=== PATIENT | male | born 1950 | race Caucasian/White ===

== ENCOUNTER → 2016-10-21 | Outpatient (CLI) | payer MEDICARE ==
--- NOTE | 2016-10-21 10:49 | REP ---
MAXILLOFACIAL CT WITHOUT CONTRAST: HISTORY: Chronic sinusitis. Mucosal thickening is present in the left maxillary sinus. There is almost complete opacification of the left maxillary sinus. Minimal mucosal thickening is present in the ethmoid, right maxillary and left sphenoid sinuses. The remaining sinuses are clear. Mucosal thickening involves the osteomeatal units. The middle and inferior nasal turbinates are partially paradoxical. There is very minimal deviation of the nasal septum to the right. A spur is present arising from the right side of the nasal septum. The cribriform plate, medial lai of the orbits and optic canals are intact. There is aeration of the left anterior clinoid process. The carotid canals form a segment of the posterolateral lai of the sphenoid sinus. The left sphenoid sinus septum inserts into the left internal carotid canal wall. Calcification is present in the left tonsil. There is slight asymmetry of the tonsils with the left being slightly larger than the right. IMPRESSION: Sinus mucosal thickening as described above. Signed by Mamadou Griffith MD 10/21/2016 11:09 A
== END ==
LOC: M RAD 09:46
PROVIDERS: ATTEND Specialist
DX: J32.4 Chronic pansinusitis (principal)

== ENCOUNTER 2017-01-19 09:58 | Day surgery (SDC) | payer MEDICARE ==
[~2017-01-19] VITALS: Ht 172.7 cm; Wt 97.5 kg
[~2017-01-19 09:58] MED LIST: ASPI81TA85 PO; ATOR1TAB19 PO; CIAL20TA PO; EPINEPHrine 1MG/ML INJ 30ML MD-VIAL As Ordered ONE; IBUP80TA PO; LIDOCAINE W/EPINEPHRINE 1% 20ML VIAL As Ordered ONE; LISI10TA4 PO; METF500T13 PO; OXYMETAZOLINE NASAL SPRAY (AFRIN) As Ordered ONE
[2017-01-19] MEDS ORDERED: LIDOCAINE 1% SDV 5 ML VIAL SQ ONE (10:00)
[2017-01-19] MEDS ORDERED: LR 1,000 ML IV ONE (10:00)
[2017-01-19] MEDS ORDERED: MIDAZOLAM INJ 2 MG/2 ML VIAL (J2250) As Ordered ONE (10:35)
[2017-01-19] MEDS ORDERED: fentaNYL 100 MCG/2 ML INJECTION (J3010) As Ordered ONE ×2 (10:35→12:56)
[2017-01-19] MEDS ORDERED: ROCURONIUM BROMIDE 50 MG/5 ML VIAL/SYRINGE As Ordered ONE (11:54)
[2017-01-19] MEDS ORDERED: PHENYLephrine HCL 500 MCG/5 ML (100MCG/ML) SYRINGE (J2370) As Ordered ONE (11:54)
[2017-01-19] MEDS ORDERED: SUCCINYLCHOLINE 100 MG/5 ML SYRINGE (J0330) As Ordered ONE (11:54)
[2017-01-19] MEDS ORDERED: LIDOCAINE 2% INJ 100 MG/5 ML SDV (FOR ANES.) As Ordered ONE (11:54)
[2017-01-19] MEDS ORDERED: ePHEDrine SULFATE 25 MG/5 ML(5MG/ML) SYRINGE As Ordered ONE (11:54)
[2017-01-19] MEDS ORDERED: PROPOFOL 200 MG/20 ML VIAL As Ordered ONE (11:54)
[2017-01-19] MEDS ORDERED: LABETALOL HCL 100 MG/20 ML VIAL As Ordered ONE (11:55)
[2017-01-19] MEDS ORDERED: dexameTHASONE 4 MG/ML 1ML VIAL (J1100) As Ordered ONE (11:55)
[2017-01-19] MEDS ORDERED: IBUPROFEN 400 MG TAB As Ordered ONE (13:34)
[2017-01-19] MEDS ORDERED: ONDANSETRON 4MG/2ML VIAL (J2405) IV PRN (13:45)
[2017-01-19] MEDS ORDERED: LR 1,000 ML IV SCH (13:45)
[2017-01-19] MEDS ORDERED: fentaNYL 100 MCG/2 ML INJECTION (J3010) IV PRN (13:45)
[2017-01-19] MEDS ORDERED: PERCOCET 5MG/325MG TAB PO PRN ×2 (13:45)
[2017-01-19] MEDS ORDERED: IBUPROFEN 800 MG TAB PO PRN (13:45)
[2017-01-19 15:00] VITALS: BP 133/83
--- NOTE | 2017-01-19 18:11 | RO ---
DATE OF PROCEDURE: 01/19/2017 PREOPERATIVE DIAGNOSIS: Chronic left maxillary sinusitis. POSTOPERATIVE DIAGNOSIS: Chronic left maxillary sinusitis. PROCEDURES: Left maxillary antrostomy. Anterior ethmoidectomy. SURGEON: Dr. Anurag Chin FISH ICER: ANESTHESIA: INDICATIONS: This is a 66-year-old who has been treating a purulent left maxillary sinusitis for greater than 4 months on antibiotics without resolution. CT scan demonstrating opacification of the left maxillary sinus as well as obstruction of the ostiomeatal complex on the left side. DESCRIPTION OF PROCEDURE: Satisfactory general endotracheal anesthesia administered. A pharyngeal pack was placed. The nose was prepared for surgery by placing cotton-soaked pledgets with Afrin solution into the nasal cavity bilaterally. A 0 degrees telescope was used initially for inspection and injection of the nose. With the 0 degrees telescope, the lateral nasal wall was visualized. He did have a septal deviation caudally which made it slightly difficult to approach the lateral nasal wall, but it was possible to get good exposure by medially infracting the middle turbinate on that side. 1% Xylocaine with 1:1000,000 epinephrine used to inject the lateral nasal wall and middle turbinate. It was noted at the time of injection he was quite hypervascular and hyperinflamed. Even the injection caused immediate bleeding. The surgery was started with the sickle knife to incise the uncinate process. This was resected away and then the ethmoidal bulla was identified and perforated obliquely, forceps and resected away completely. We again noted that he had significant bleeding from any structure that was touched on this side. The mucosa was hyperemic, injected and very vascular. With adequate exposure of the lateral nasal wall now with ethmoidal bulla removed and the uncinate process, palpation with a right angled suction discovered the natural sinus ostia. It was markedly obstructed with edematous hyperplastic mucosa. This was resected piecemeal using the side biting up biting forceps. The microdebrider was then brought into place to remove islands of mucosal tissue that were still left behind in the ethmoidectomy dissection. Supraorbital ethmoid cell was open. This gave a large entrance into the middle meatus and infundibulum. After the maxillary sinus was cannulated with side suction it was irrigated with saline. Initially purulent discharge was obtained from it. After that the discharge from the maxillary sinus was clear. Adrenal pledgets were used constantly to control the constant oozing and more brisk bleeding from the lateral nasal wall that would be considered normal. Finally a 30 degrees telescope was brought into place for completion of the antrostomy using a side biting forceps. The anterior portion of the natural sinus ostia was enlarged. Adrenal pledgets were placed. At the completion of this, when these were removed, there was no significant bleeding. A nasal port pack was placed into the side of the nose. The pharyngeal pack was removed and throat was suctioned. The patient was awakened, extubated and sent to recovery room in satisfactory condition.
== END 2017-01-19 15:38 | disposition home or self-care (01) ==
LOC: M SDC 09:58
PROVIDERS: ATTEND Specialist
DX: J32.0 Chronic maxillary sinusitis (principal); E11.9 Type 2 diabetes mellitus without complications; Z79.82 Long term (current) use of aspirin; I10 Essential (primary) hypertension; E78.5 Hyperlipidemia, unspecified; Z79.899 Other long term (current) drug therapy
CPT/HCPCS: 31254; 31267; 88305; J0330; J1100; J2250; J2370; J3010

== ENCOUNTER 2017-10-25 17:17 | Emergency (ER) | payer MEDICARE ==
[2017-10-25] MEDS ORDERED: ADENOSINE 6MG/2ML INJECTION (J0153) As Ordered (17:40)
[2017-10-25] MEDS ORDERED: METOPROLOL 5 MG/5 ML VIAL As Ordered (17:44)
[2017-10-25] MEDS: METOPROLOL 5 MG/5 ML VIAL IV ×3 (17:55→18:10)
[2017-10-25] MEDS: ADENOSINE 6MG/2ML INJECTION (J0153) IV (17:55)
[2017-10-25 18:02] LABS: BASO # 0.1 10^3/uL (0.0-0.2); BASO % 0.4 % (0.0-1.0); EOS # 0.1 10^3/uL (0.0-0.50); EOS % 0.8 % (0.0-3.0); HEMATOCRIT 42.4 % (42.0-52.0); HEMOGLOBIN 14.9 g/dl (13.5-17.5); IMMATURE GRANULOCYTE % 0.6 % (0-3.0); LYMPH # 4.2 10^3/uL (1.5-4.5); MEAN CORPUSCULAR HGB CONC 35.1 g/dl (32.0-36.5); MEAN CORPUSCULAR VOLUME 88.3 fl (80.0-96.0); MONO # 1.4 10^3/uL (0.0-0.8); MONO % 8.1 % (0.0-5.0); NEUTROPHILS # 11.5 10^3/uL (1.8-7.7); NEUTROPHILS % 66.1 % (36.0-66.0); PLATELET COUNT, AUTOMATED 415 10^3/uL (150-450); RED CELL DISTRIBUTION WIDTH 13.4 % (11.5-14.5); WHITE BLOOD COUNT 17.4 10^3/uL (4.0-10.0)
[2017-10-25 18:05] LABS: INR 0.99; PROTHROMBIN TIME 13.2 SECONDS (12.4-14.5)
[2017-10-25 18:06] LABS: PARTIAL THROMBOPLASTIN TIME 28.5 SECONDS (26.8-37.9)
[2017-10-25 18:21] LABS: ALBUMIN/GLOBULIN RATIO 0.64 (1.00-1.93); ALT/SGPT 35 U/L (12-78); ANION GAP 13 MEQ/L (8-16); AST/SGOT 33 U/L (7-37); BILIRUBIN,DIRECT 0.1 MG/DL (0.0-0.2); BILIRUBIN,TOTAL 0.2 MG/DL (0.2-1.0); BLOOD UREA NITROGEN 21 MG/DL (7-18); C REACTIVE PROTEIN QUANTITATIV 1.53 MG/DL (0.00-0.30); CALCIUM LEVEL 9.4 MG/DL (8.8-10.2); CARBON DIOXIDE LEVEL 21 MEQ/L (21-32); CHLORIDE LEVEL 103 MEQ/L (98-107); CREATININE FOR GFR 1.39 MG/DL (0.70-1.30); GLOMERULAR FILTRATION RATE 54.1 (>49); GLUCOSE, FASTING 217 MG/DL (70-100); LIPASE 103 U/L (73-393); POTASSIUM SERUM 4.1 MEQ/L (3.5-5.1); SODIUM LEVEL 137 MEQ/L (136-145); TOTAL PROTEIN 7.7 GM/DL (6.4-8.2); TROPONIN I 0.03 NG/ML (< 0.10)
[2017-10-25 18:27] LABS: ALKALINE PHOSPHATASE 109 U/L (45-117); CK-MB VALUE MASS 2.3 NG/ML (<3.6); CPK CREATINE PHOSPHOKINASE 224 U/L (39-308); FREE T4 1.21 NG/DL (0.76-1.46); MB/CK RELATIVE INDEX 1.02 (< OR =4); NT-PRO BNP 466 PG/ML (<125)
[2017-10-25] MEDS: METOPROLOL TART 50 MG TAB PO (18:40)
[2017-10-25 18:52] LABS: MAGNESIUM LEVEL 1.5 MG/DL (1.8-2.4)
[2017-10-25 20:45] LABS: CPK CREATINE PHOSPHOKINASE 195 U/L (39-308); TROPONIN I 0.06 NG/ML (< 0.10)
[2017-10-25 20:46] LABS: CK-MB VALUE MASS 2.1 NG/ML (<3.6); MB/CK RELATIVE INDEX 1.07 (< OR =4)
[2017-10-25] MEDS ORDERED: METOPROLOL TART 50 MG TAB PO (22:00)
== END 2017-10-25 21:30 | disposition home or self-care (01) ==
LOC: M ED 17:17
DX: I47.1 Supraventricular tachycardia (principal); I48.0 Paroxysmal atrial fibrillation; I10 Essential (primary) hypertension; K21.9 Gastro-esophageal reflux disease without esophagitis; E11.9 Type 2 diabetes mellitus without complications; Z87.891 Personal history of nicotine dependence; Z79.899 Other long term (current) drug therapy; Z79.82 Long term (current) use of aspirin; Z79.84 Long term (current) use of oral hypoglycemic drugs; Z79.2 Long term (current) use of antibiotics; Z79.52 Long term (current) use of systemic steroids
CPT/HCPCS: J0153

== ENCOUNTER 2017-11-06 23:07 | Inpatient (IN) | payer MEDICARE ==
[2017-11-06 20:52] LABS: BEDSIDE GLUCOSE 187 MG/DL (80-115)
[2017-11-06] MEDS: HumaLOG INSULIN (NovoLOG) PER UNIT SC (21:00)
[2017-11-06 21:04] LABS: BASO # 0.1 10^3/uL (0.0-0.2); BASO % 0.4 % (0.0-1.0); EOS # 0.1 10^3/uL (0.0-0.50); EOS % 0.8 % (0.0-3.0); IMMATURE GRANULOCYTE % 0.5 % (0-3.0); LYMPH # 2.3 10^3/uL (1.5-4.5); LYMPH % 14.8 % (24.0-44.0); MEAN CORPUSCULAR HEMOGLOBIN 31.1 pg (27.0-33.0); MEAN CORPUSCULAR HGB CONC 34.9 g/dl (32.0-36.5); MEAN CORPUSCULAR VOLUME 89.2 fl (80.0-96.0); MONO # 1.3 10^3/uL (0.0-0.8); MONO % 8.3 % (0.0-5.0); NEUTROPHILS # 11.7 10^3/uL (1.8-7.7); NEUTROPHILS % 75.2 % (36.0-66.0); PLATELET COUNT, AUTOMATED 296 10^3/uL (150-450); RED BLOOD COUNT 4.82 10^6/uL (4.30-6.10); RED CELL DISTRIBUTION WIDTH 13.6 % (11.5-14.5); WHITE BLOOD COUNT 15.6 10^3/uL (4.0-10.0)
[2017-11-06 21:21] LABS: INR 1.21; PROTHROMBIN TIME 15.5 SECONDS (12.1-14.4)
[2017-11-06 21:22] LABS: PARTIAL THROMBOPLASTIN TIME 36.7 SECONDS (25.4-37.6)
[2017-11-06 21:25] LABS: ANION GAP 15 MEQ/L (8-16); BLOOD UREA NITROGEN 12 MG/DL (7-18); CALCIUM LEVEL 8.4 MG/DL (8.8-10.2); CARBON DIOXIDE LEVEL 25 MEQ/L (21-32); CHLORIDE LEVEL 103 MEQ/L (98-107); CK-MB VALUE MASS 1.4 NG/ML (<3.6); CPK CREATINE PHOSPHOKINASE 74 U/L (39-308); CREATININE FOR GFR 1.24 MG/DL (0.70-1.30); GLOMERULAR FILTRATION RATE > 60.0 (>49); GLUCOSE, FASTING 190 MG/DL (70-100); MB/CK RELATIVE INDEX 1.89 (< OR =4); POTASSIUM SERUM 3.9 MEQ/L (3.5-5.1); SODIUM LEVEL 143 MEQ/L (136-145); TROPONIN I 0.02 NG/ML (< 0.10)
[2017-11-06] MEDS: AZITHROMYCIN INJ 500 MG, VIAL MATE ADAPTER 1 EACH in D5W 250 ML IV (21:27)
[2017-11-06] MEDS: NS 1,000 ML IV (21:27)
[2017-11-06 21:46] LABS: ABG BASE EXCESS -1.2 (-2.0-2.0); ABG HCO3 21.1 MEQ/L (22.0-26.0); ABG O2 SATURATION 95.7 % (95.0-99.0); ABG PARTIAL PRESSURE CO2 29.2 mmHg (35.0-45.0); ABG PARTIAL PRESSURE O2 75.1 mmHg (75.0-100.0); ABG STANDARD HCO3 23.4 MEQ/L (22.0-26.0); ABG pH (ARTERIAL) 7.476 UNITS (7.350-7.450)
[2017-11-06] MEDS: CEFUROXIME SODIUM 1.5 GM in D5W MINI-BAG PLUS 50 ML IV (21:57)
[~2017-11-06 23:07] MED LIST changes: +ACETAMINOPHEN TAB 650MG DOSE (2X325MG) PO; -ASPI81TA85 PO; -ATOR1TAB19 PO; -CIAL20TA PO; +DEXTROSE 50% 50 ML SYRINGE IV; -EPINEPHrine 1MG/ML INJ 30ML MD-VIAL As Ordered ONE; +GLUCAGON FOR INJ 1 MG VIAL (J1610) SC; +GLUCOSE 4 GM CHEW TABLET PO; -IBUP80TA PO; +IBUPROFEN 800 MG TAB PO; +ISOVUE-370 76% 100ML VIAL (Q9967) As Ordered; -LIDOCAINE W/EPINEPHRINE 1% 20ML VIAL As Ordered ONE; -LISI10TA4 PO; -METF500T13 PO; +METOPROLOL TART 50 MG TAB PO; -OXYMETAZOLINE NASAL SPRAY (AFRIN) As Ordered ONE
[2017-11-07] MEDS: CEFTAROLINE FOSAMIL 600 MG in D5W MINI-BAG PLUS 50 ML IV (00:42)
[2017-11-07] MEDS: LACTOBACILLUS ACIDOPHILUS CAP (BACID) PO ×4 (00:42→21:07)
[2017-11-07 05:21] LABS: BASO % 0.3 % (0.0-1.0); EOS # 0.1 10^3/uL (0.0-0.50); EOS % 0.7 % (0.0-3.0); HEMOGLOBIN 14.2 g/dl (13.5-17.5); IMMATURE GRANULOCYTE % 0.4 % (0-3.0); LYMPH # 3.2 10^3/uL (1.5-4.5); LYMPH % 21.6 % (24.0-44.0); MEAN CORPUSCULAR HEMOGLOBIN 30.8 pg (27.0-33.0); MEAN CORPUSCULAR HGB CONC 33.8 g/dl (32.0-36.5); MEAN CORPUSCULAR VOLUME 91.1 fl (80.0-96.0); MONO # 1.3 10^3/uL (0.0-0.8); MONO % 8.6 % (0.0-5.0); NEUTROPHILS # 10.3 10^3/uL (1.8-7.7); NEUTROPHILS % 68.4 % (36.0-66.0); PLATELET COUNT, AUTOMATED 282 10^3/uL (150-450); RED BLOOD COUNT 4.61 10^6/uL (4.30-6.10); RED CELL DISTRIBUTION WIDTH 13.9 % (11.5-14.5)
[2017-11-07 05:32] LABS: ANION GAP 10 MEQ/L (8-16); BLOOD UREA NITROGEN 11 MG/DL (7-18); CALCIUM LEVEL 8.8 MG/DL (8.8-10.2); CARBON DIOXIDE LEVEL 28 MEQ/L (21-32); CHLORIDE LEVEL 105 MEQ/L (98-107); CREATININE FOR GFR 0.93 MG/DL (0.70-1.30); GLOMERULAR FILTRATION RATE > 60.0 (>49); GLUCOSE, FASTING 95 MG/DL (70-100); POTASSIUM SERUM 4.9 MEQ/L (3.5-5.1); SODIUM LEVEL 143 MEQ/L (136-145)
[2017-11-07] MEDS: HumaLOG INSULIN (NovoLOG) PER UNIT SC ×4 (07:30→21:00)
[2017-11-07] MEDS: METOPROLOL TART 50 MG TAB PO ×2 (08:37→21:08)
[2017-11-07] MEDS: ASPIRIN 81 MG ENTERIC TAB PO (08:37)
[2017-11-07] MEDS: ATORVASTATIN 10 MG TAB PO (08:37)
[2017-11-07] MEDS: APIXABAN 5 MG TAB (ELIQUIS) PO ×2 (08:37→21:08)
[2017-11-07] MEDS: GASTROGRAFIN SOLUTION 30ML PO ×2 (08:38→09:10)
[2017-11-07] MEDS: NS 1,000 ML IV ×2 (08:38→18:43)
[2017-11-07] MEDS: LISINOPRIL 10 MG TAB PO (08:38)
[2017-11-07] MEDS: SENOKOT S TAB PO ×2 (08:42→21:08)
[2017-11-07] MEDS ORDERED: ISOVUE-370 76% 100ML VIAL (Q9967) As Ordered (10:06)
[2017-11-07] MEDS: PIPERACILLIN/TAZOBACTAM SOD 4.5 GM in D5W MINI-BAG PLUS 50 ML IV ×3 (10:45→21:08)
[2017-11-07 11:56] LABS: BEDSIDE GLUCOSE 177 MG/DL (80-115)
[2017-11-07] MEDS: IPRATROPIUM 0.5MG/ALBUTEROL 2.5MG INH SOL UD 3ML (DUONEB)(J7620) NEB ×2 (15:29→19:36)
[2017-11-07 17:19] LABS: BEDSIDE GLUCOSE 132 MG/DL (80-115)
[2017-11-07 21:14] LABS: BEDSIDE GLUCOSE 151 MG/DL (80-115)
[2017-11-08] MEDS: PIPERACILLIN/TAZOBACTAM SOD 4.5 GM in D5W MINI-BAG PLUS 50 ML IV ×4 (04:32→21:52)
[2017-11-08 05:12] LABS: BASO # 0.1 10^3/uL (0.0-0.2); BASO % 0.5 % (0.0-1.0); EOS # 0.1 10^3/uL (0.0-0.50); EOS % 0.8 % (0.0-3.0); HEMATOCRIT 38.1 % (42.0-52.0); HEMOGLOBIN 13.3 g/dl (13.5-17.5); IMMATURE GRANULOCYTE % 0.5 % (0-3.0); LYMPH # 2.5 10^3/uL (1.5-4.5); MEAN CORPUSCULAR HEMOGLOBIN 30.9 pg (27.0-33.0); MEAN CORPUSCULAR HGB CONC 34.9 g/dl (32.0-36.5); MEAN CORPUSCULAR VOLUME 88.4 fl (80.0-96.0); MONO % 8.4 % (0.0-5.0); NEUTROPHILS # 8.1 10^3/uL (1.8-7.7); NEUTROPHILS % 68.8 % (36.0-66.0); PLATELET COUNT, AUTOMATED 255 10^3/uL (150-450); RED BLOOD COUNT 4.31 10^6/uL (4.30-6.10); RED CELL DISTRIBUTION WIDTH 13.7 % (11.5-14.5); WHITE BLOOD COUNT 11.9 10^3/uL (4.0-10.0)
[2017-11-08 05:27] LABS: ANION GAP 12 MEQ/L (8-16); BLOOD UREA NITROGEN 10 MG/DL (7-18); CALCIUM LEVEL 8.5 MG/DL (8.8-10.2); CARBON DIOXIDE LEVEL 27 MEQ/L (21-32); CHLORIDE LEVEL 106 MEQ/L (98-107); GLOMERULAR FILTRATION RATE > 60.0 (>49); GLUCOSE, FASTING 131 MG/DL (70-100); POTASSIUM SERUM 3.9 MEQ/L (3.5-5.1); SODIUM LEVEL 145 MEQ/L (136-145)
[2017-11-08] MEDS: HumaLOG INSULIN (NovoLOG) PER UNIT SC ×4 (07:08→20:58)
[2017-11-08] MEDS: IPRATROPIUM 0.5MG/ALBUTEROL 2.5MG INH SOL UD 3ML (DUONEB)(J7620) NEB ×4 (07:22→21:09)
[2017-11-08] MEDS: NS 1,000 ML IV ×2 (07:32→17:29)
[2017-11-08] MEDS: APIXABAN 5 MG TAB (ELIQUIS) PO ×2 (08:54→20:54)
[2017-11-08] MEDS: LISINOPRIL 10 MG TAB PO (08:55)
[2017-11-08] MEDS: LACTOBACILLUS ACIDOPHILUS CAP (BACID) PO ×3 (08:55→20:54)
[2017-11-08] MEDS: SENOKOT S TAB PO ×2 (08:55→20:54)
[2017-11-08] MEDS: ATORVASTATIN 10 MG TAB PO (08:55)
[2017-11-08] MEDS: ASPIRIN 81 MG ENTERIC TAB PO (08:55)
[2017-11-08] MEDS: METOPROLOL TART 50 MG TAB PO ×2 (08:55→20:54)
[2017-11-08 12:02] LABS: BEDSIDE GLUCOSE 169 MG/DL (80-115)
[2017-11-08 17:23] LABS: BEDSIDE GLUCOSE 155 MG/DL (80-115)
[2017-11-08 21:03] LABS: BEDSIDE GLUCOSE 170 MG/DL (80-115)
[2017-11-09] MEDS: IPRATROPIUM 0.5MG/ALBUTEROL 2.5MG INH SOL UD 3ML (DUONEB)(J7620) NEB ×3 (00:47→16:39)
[2017-11-09] MEDS: PIPERACILLIN/TAZOBACTAM SOD 4.5 GM in D5W MINI-BAG PLUS 50 ML IV ×4 (03:24→21:22)
[2017-11-09 05:06] LABS: BASO # 0.1 10^3/uL (0.0-0.2); BASO % 0.4 % (0.0-1.0); EOS # 0.1 10^3/uL (0.0-0.50); EOS % 0.7 % (0.0-3.0); HEMATOCRIT 38.9 % (42.0-52.0); HEMOGLOBIN 13.6 g/dl (13.5-17.5); IMMATURE GRANULOCYTE % 0.5 % (0-3.0); LYMPH # 2.6 10^3/uL (1.5-4.5); MEAN CORPUSCULAR VOLUME 88.6 fl (80.0-96.0); MONO # 1.1 10^3/uL (0.0-0.8); MONO % 8.3 % (0.0-5.0); NEUTROPHILS # 9.8 10^3/uL (1.8-7.7); NEUTROPHILS % 71.1 % (36.0-66.0); PLATELET COUNT, AUTOMATED 288 10^3/uL (150-450); RED BLOOD COUNT 4.39 10^6/uL (4.30-6.10); RED CELL DISTRIBUTION WIDTH 13.7 % (11.5-14.5); WHITE BLOOD COUNT 13.7 10^3/uL (4.0-10.0)
[2017-11-09 05:21] LABS: ANION GAP 12 MEQ/L (8-16); BLOOD UREA NITROGEN 6 MG/DL (7-18); CALCIUM LEVEL 8.6 MG/DL (8.8-10.2); CARBON DIOXIDE LEVEL 24 MEQ/L (21-32); CHLORIDE LEVEL 108 MEQ/L (98-107); CREATININE FOR GFR 0.91 MG/DL (0.70-1.30); GLOMERULAR FILTRATION RATE > 60.0 (>49); GLUCOSE, FASTING 151 MG/DL (70-100); POTASSIUM SERUM 3.5 MEQ/L (3.5-5.1); SODIUM LEVEL 144 MEQ/L (136-145)
[2017-11-09] MEDS: ONDANSETRON 4MG/2ML VIAL (J2405) IV (05:32)
[2017-11-09] MEDS: NS 1,000 ML IV (07:23)
[2017-11-09] MEDS: HumaLOG INSULIN (NovoLOG) PER UNIT SC ×4 (08:10→21:26)
[2017-11-09] MEDS: LISINOPRIL 10 MG TAB PO (08:11)
[2017-11-09] MEDS: LACTOBACILLUS ACIDOPHILUS CAP (BACID) PO ×3 (08:11→21:21)
[2017-11-09] MEDS: ASPIRIN 81 MG ENTERIC TAB PO (08:11)
[2017-11-09] MEDS: METOPROLOL TART 50 MG TAB PO ×2 (08:11→21:22)
[2017-11-09] MEDS: APIXABAN 5 MG TAB (ELIQUIS) PO (08:11)
[2017-11-09] MEDS: ATORVASTATIN 10 MG TAB PO (08:12)
[2017-11-09] MEDS: SENOKOT S TAB PO (08:12)
[2017-11-09 11:37] LABS: BEDSIDE GLUCOSE 175 MG/DL (80-115)
[2017-11-09 16:41] LABS: BEDSIDE GLUCOSE 227 MG/DL (80-115)
[2017-11-09 20:37] LABS: BEDSIDE GLUCOSE 66 MG/DL (80-115)
[2017-11-10] MEDS: PIPERACILLIN/TAZOBACTAM SOD 4.5 GM in D5W MINI-BAG PLUS 50 ML IV ×4 (03:52→22:07)
[2017-11-10] MEDS: IPRATROPIUM 0.5MG/ALBUTEROL 2.5MG INH SOL UD 3ML (DUONEB)(J7620) NEB ×2 (05:03→12:57)
[2017-11-10 06:40] LABS: BEDSIDE GLUCOSE 190 MG/DL (80-115)
[2017-11-10] MEDS: HumaLOG INSULIN (NovoLOG) PER UNIT SC ×4 (07:32→20:13)
[2017-11-10 08:12] LABS: HEMATOCRIT 39.7 % (42.0-52.0); HEMOGLOBIN 13.8 g/dl (13.5-17.5); MEAN CORPUSCULAR HEMOGLOBIN 31.4 pg (27.0-33.0); MEAN CORPUSCULAR HGB CONC 34.8 g/dl (32.0-36.5); MEAN CORPUSCULAR VOLUME 90.2 fl (80.0-96.0); PLATELET COUNT, AUTOMATED 293 10^3/uL (150-450); WHITE BLOOD COUNT 12.6 10^3/uL (4.0-10.0)
[2017-11-10 08:35] LABS: ANION GAP 11 MEQ/L (8-16); BLOOD UREA NITROGEN 4 MG/DL (7-18); CALCIUM LEVEL 8.6 MG/DL (8.8-10.2); CARBON DIOXIDE LEVEL 28 MEQ/L (21-32); CHLORIDE LEVEL 108 MEQ/L (98-107); CREATININE FOR GFR 0.98 MG/DL (0.70-1.30); GLOMERULAR FILTRATION RATE > 60.0 (>49); GLUCOSE, FASTING 175 MG/DL (70-100); POTASSIUM SERUM 4.5 MEQ/L (3.5-5.1); SODIUM LEVEL 147 MEQ/L (136-145)
[2017-11-10] MEDS: METOPROLOL TART 50 MG TAB PO ×2 (09:15→22:07)
[2017-11-10] MEDS: LACTOBACILLUS ACIDOPHILUS CAP (BACID) PO ×3 (09:15→22:06)
[2017-11-10] MEDS: LISINOPRIL 10 MG TAB PO (09:16)
[2017-11-10] MEDS: ATORVASTATIN 10 MG TAB PO (09:17)
[2017-11-10] MEDS: ALBUTEROL 90 MCG/ACT 8GM HFA INHALER INH ×3 (10:43→21:07)
[2017-11-10] MEDS: HEPARIN SOD (PORCINE) 5000 UNITS/ML VIAL SQ ×2 (10:57→22:06)
[2017-11-10] MEDS: ASPIRIN 81 MG ENTERIC TAB PO (10:57)
[2017-11-10 12:28] LABS: BEDSIDE GLUCOSE 134 MG/DL (80-115)
[2017-11-10] MEDS: ONDANSETRON 4MG/2ML VIAL (J2405) IV (13:11)
[2017-11-10 16:45] LABS: BEDSIDE GLUCOSE 243 MG/DL (80-115)
[2017-11-10 20:14] LABS: BEDSIDE GLUCOSE 138 MG/DL (80-115)
[2017-11-10] MEDS ORDERED: METOPROLOL 5 MG/5 ML VIAL As Ordered (23:04)
[2017-11-10] MEDS: METOPROLOL 5 MG/5 ML VIAL IV (23:08)
[2017-11-10] MEDS ORDERED: ADENOSINE 6MG/2ML INJECTION (J0153) As Ordered ×2 (23:12→23:19)
[2017-11-10] MEDS ORDERED: LORazepam 2 MG/ML VIAL (J2060) As Ordered (23:16)
[2017-11-10] MEDS: ADENOSINE 6MG/2ML INJECTION (J0153) IV ×4 (23:16→23:26)
[2017-11-10] MEDS ORDERED: FUROSEMIDE 40 MG/4 ML VIAL (J1940) As Ordered (23:21)
[2017-11-10] MEDS ORDERED: PHENYLEPHRINE INJ 10MG/ML VIAL (J2370) As Ordered (23:25)
[2017-11-10] MEDS ORDERED: fentaNYL 100 MCG/2 ML INJECTION (J3010) As Ordered (23:30)
[2017-11-10] MEDS: FUROSEMIDE 40 MG/4 ML VIAL (J1940) IV (23:30)
[2017-11-10] MEDS: PHENYLEPHRINE HCL INJ 50 MG in D5W 500 ML IV (23:50)
[2017-11-11] MEDS: FUROSEMIDE injection 250 MG in D5W 225 ML IV (01:01)
[2017-11-11] MEDS: ALBUTEROL 90 MCG/ACT 8GM HFA INHALER INH ×2 (01:59→18:25)
[2017-11-11 04:27] LABS: HEMATOCRIT 43.5 % (42.0-52.0); HEMOGLOBIN 15.1 g/dl (13.5-17.5); MEAN CORPUSCULAR HGB CONC 34.7 g/dl (32.0-36.5); MEAN CORPUSCULAR VOLUME 89.3 fl (80.0-96.0); PLATELET COUNT, AUTOMATED 340 10^3/uL (150-450); RED BLOOD COUNT 4.87 10^6/uL (4.30-6.10); RED CELL DISTRIBUTION WIDTH 13.8 % (11.5-14.5); WHITE BLOOD COUNT 13.4 10^3/uL (4.0-10.0)
[2017-11-11] MEDS: PIPERACILLIN/TAZOBACTAM SOD 4.5 GM in D5W MINI-BAG PLUS 50 ML IV ×4 (04:27→21:15)
[2017-11-11] MEDS: SIMETHICONE 80 MG CHEW TAB PO ×2 (04:39→22:41)
[2017-11-11 04:43] LABS: ANION GAP 11 MEQ/L (8-16); BLOOD UREA NITROGEN 7 MG/DL (7-18); CALCIUM LEVEL 8.8 MG/DL (8.8-10.2); CARBON DIOXIDE LEVEL 30 MEQ/L (21-32); CHLORIDE LEVEL 103 MEQ/L (98-107); CREATININE FOR GFR 0.96 MG/DL (0.70-1.30); GLOMERULAR FILTRATION RATE > 60.0 (>49); GLUCOSE, FASTING 143 MG/DL (70-100); MAGNESIUM LEVEL 1.8 MG/DL (1.8-2.4); SODIUM LEVEL 144 MEQ/L (136-145)
[2017-11-11] MEDS ORDERED: ADENOSINE 6MG/2ML INJECTION (J0153) (06:27)
[2017-11-11] MEDS: POTASSIUM CHLORIDE 10 MEQ SR TABLET PO ×2 (06:57→12:19)
[2017-11-11] MEDS: MAG SULF 1GM/100ML (MAG RUN) 1 GM in APPROPRIATE DILUENT 1 EA IV ×2 (07:02→08:27)
[2017-11-11] MEDS: HumaLOG INSULIN (NovoLOG) PER UNIT SC ×4 (08:28→21:00)
[2017-11-11] MEDS: LACTOBACILLUS ACIDOPHILUS CAP (BACID) PO ×3 (09:10→21:16)
[2017-11-11] MEDS: DIGOXIN INJ 0.5 MG/2 ML AMP (J1160) IV (09:10)
[2017-11-11] MEDS: HEPARIN SOD (PORCINE) 5000 UNITS/ML VIAL SQ ×2 (09:10→21:16)
[2017-11-11] MEDS: ATORVASTATIN 10 MG TAB PO (09:10)
[2017-11-11] MEDS: METOPROLOL TART 50 MG TAB PO ×3 (09:11→21:19)
[2017-11-11] MEDS: ASPIRIN 81 MG ENTERIC TAB PO (09:11)
[2017-11-11] MEDS: LISINOPRIL 10 MG TAB PO (09:11)
[2017-11-11] MEDS: KCL 10MEQ/100ML SWI (KRUN) 10 MEQ in APPROPRIATE DILUENT 1 EA IV (10:49)
[2017-11-11 11:48] LABS: BEDSIDE GLUCOSE 112 MG/DL (80-115)
[2017-11-11] MEDS: CALCIUM CARBONATE 500 MG CHEW U/D PO ×3 (12:40→19:18)
[2017-11-11] MEDS ORDERED: METOPROLOL TART 50 MG TAB PO (14:00)
[2017-11-11 16:13] LABS: ANION GAP 11 MEQ/L (8-16); BLOOD UREA NITROGEN 8 MG/DL (7-18); CALCIUM LEVEL 8.7 MG/DL (8.8-10.2); CARBON DIOXIDE LEVEL 31 MEQ/L (21-32); CHLORIDE LEVEL 98 MEQ/L (98-107); GLOMERULAR FILTRATION RATE > 60.0 (>49); GLUCOSE, FASTING 110 MG/DL (70-100); MAGNESIUM LEVEL 2.1 MG/DL (1.8-2.4); POTASSIUM SERUM 4.1 MEQ/L (3.5-5.1); SODIUM LEVEL 140 MEQ/L (136-145)
[2017-11-11 17:03] LABS: BEDSIDE GLUCOSE 184 MG/DL (80-115)
[2017-11-11] MEDS: PANTOPRAZOLE 40MG TAB (PROTONIX) PO (17:06)
[2017-11-11 20:14] LABS: BEDSIDE GLUCOSE 104 MG/DL (80-115)
[2017-11-12] MEDS: CALCIUM CARBONATE 500 MG CHEW U/D PO ×3 (00:02→19:41)
[2017-11-12] MEDS: PIPERACILLIN/TAZOBACTAM SOD 4.5 GM in D5W MINI-BAG PLUS 50 ML IV ×4 (04:20→21:15)
[2017-11-12 05:03] LABS: HEMATOCRIT 43.2 % (42.0-52.0); HEMOGLOBIN 15.2 g/dl (13.5-17.5); MEAN CORPUSCULAR HEMOGLOBIN 31.3 pg (27.0-33.0); MEAN CORPUSCULAR HGB CONC 35.2 g/dl (32.0-36.5); MEAN CORPUSCULAR VOLUME 88.9 fl (80.0-96.0); PLATELET COUNT, AUTOMATED 333 10^3/uL (150-450); RED BLOOD COUNT 4.86 10^6/uL (4.30-6.10); RED CELL DISTRIBUTION WIDTH 13.4 % (11.5-14.5); WHITE BLOOD COUNT 17.1 10^3/uL (4.0-10.0)
[2017-11-12] MEDS: METOPROLOL TART 50 MG TAB PO ×3 (05:15→21:14)
[2017-11-12 05:25] LABS: ANION GAP 11 MEQ/L (8-16); BLOOD UREA NITROGEN 9 MG/DL (7-18); CALCIUM LEVEL 8.2 MG/DL (8.8-10.2); CARBON DIOXIDE LEVEL 28 MEQ/L (21-32); CHLORIDE LEVEL 98 MEQ/L (98-107); CREATININE FOR GFR 0.76 MG/DL (0.70-1.30); GLOMERULAR FILTRATION RATE > 60.0 (>49); GLUCOSE, FASTING 143 MG/DL (70-100); MAGNESIUM LEVEL 1.8 MG/DL (1.8-2.4); POTASSIUM SERUM 3.8 MEQ/L (3.5-5.1); SODIUM LEVEL 137 MEQ/L (136-145)
[2017-11-12] MEDS: HumaLOG INSULIN (NovoLOG) PER UNIT SC ×4 (07:30→21:00)
[2017-11-12 08:16] LABS: BEDSIDE GLUCOSE 144 MG/DL (80-115)
[2017-11-12] MEDS: methylPREDNISolone INJ 125 MG/2 ML VIAL (J2930) IV ×2 (08:30→21:14)
[2017-11-12] MEDS: LACTOBACILLUS ACIDOPHILUS CAP (BACID) PO ×3 (08:31→21:14)
[2017-11-12] MEDS: ATORVASTATIN 10 MG TAB PO (08:31)
[2017-11-12] MEDS: ASPIRIN 81 MG ENTERIC TAB PO (08:31)
[2017-11-12] MEDS: DIGOXIN 0.25 MG TAB PO (08:32)
[2017-11-12] MEDS: LISINOPRIL 10 MG TAB PO (08:32)
[2017-11-12] MEDS: HEPARIN SOD (PORCINE) 5000 UNITS/ML VIAL SQ ×2 (08:35→21:00)
[2017-11-12] MEDS: PANTOPRAZOLE 40MG TAB (PROTONIX) PO (08:35)
[2017-11-12 11:43] LABS: BEDSIDE GLUCOSE 199 MG/DL (80-115)
[2017-11-12] MEDS ORDERED: LIDOCAINE 1% MDV 20ML VIAL As Ordered (15:21)
[2017-11-12 16:47] LABS: BEDSIDE GLUCOSE 160 MG/DL (80-115)
[2017-11-12 21:30] LABS: BEDSIDE GLUCOSE 149 MG/DL (80-115)
[2017-11-13 04:28] LABS: HEMATOCRIT 39.8 % (42.0-52.0); HEMOGLOBIN 13.7 g/dl (13.5-17.5); MEAN CORPUSCULAR HEMOGLOBIN 30.7 pg (27.0-33.0); MEAN CORPUSCULAR HGB CONC 34.4 g/dl (32.0-36.5); MEAN CORPUSCULAR VOLUME 89.2 fl (80.0-96.0); PLATELET COUNT, AUTOMATED 315 10^3/uL (150-450); RED BLOOD COUNT 4.46 10^6/uL (4.30-6.10); RED CELL DISTRIBUTION WIDTH 13.5 % (11.5-14.5); WHITE BLOOD COUNT 15.3 10^3/uL (4.0-10.0)
[2017-11-13 04:55] LABS: ANION GAP 11 MEQ/L (8-16); BLOOD UREA NITROGEN 13 MG/DL (7-18); CALCIUM LEVEL 8.9 MG/DL (8.8-10.2); CARBON DIOXIDE LEVEL 29 MEQ/L (21-32); CHLORIDE LEVEL 99 MEQ/L (98-107); GLOMERULAR FILTRATION RATE > 60.0 (>49); GLUCOSE, FASTING 173 MG/DL (70-100); POTASSIUM SERUM 4.1 MEQ/L (3.5-5.1); SODIUM LEVEL 139 MEQ/L (136-145)
[2017-11-13] MEDS: METOPROLOL TART 50 MG TAB PO ×2 (05:03→13:25)
[2017-11-13] MEDS: PIPERACILLIN/TAZOBACTAM SOD 4.5 GM in D5W MINI-BAG PLUS 50 ML IV ×2 (05:03→09:32)
[2017-11-13] MEDS: methylPREDNISolone INJ 125 MG/2 ML VIAL (J2930) IV (09:31)
[2017-11-13] MEDS: LACTOBACILLUS ACIDOPHILUS CAP (BACID) PO ×2 (09:32→15:19)
[2017-11-13] MEDS: HumaLOG INSULIN (NovoLOG) PER UNIT SC ×2 (09:32→13:28)
[2017-11-13] MEDS: LISINOPRIL 10 MG TAB PO (09:32)
[2017-11-13] MEDS: DIGOXIN 0.125 MG TAB PO (09:33)
[2017-11-13] MEDS: HEPARIN SOD (PORCINE) 5000 UNITS/ML VIAL SQ (09:33)
[2017-11-13] MEDS: PANTOPRAZOLE 40MG TAB (PROTONIX) PO (09:33)
[2017-11-13] MEDS: ATORVASTATIN 10 MG TAB PO (09:33)
[2017-11-13] MEDS: ASPIRIN 81 MG ENTERIC TAB PO (09:33)
[2017-11-13 13:28] LABS: BEDSIDE GLUCOSE 189 MG/DL (80-115)
[2017-11-13] MEDS ORDERED: methylPREDNISolone INJ 40 MG/1 ML VIAL (J2920) IV (21:00)
== END 2017-11-13 15:33 | disposition home or self-care (01) | DRG 194 ==
LOC: M PCU 11-07 00:10 → M ICU 11-10 23:54 → M ED 23:07 → M ED INP 23:08
PROVIDERS: Hospitalist
PROC: 0FB03ZX Excision of Liver, Percutaneous Approach, Diagnostic (ICD-10-PCS; principal; 2017-11-12)
DX: J18.9 Pneumonia, unspecified organism (principal); C78.7 Secondary malignant neoplasm of liver and intrahepatic bile duct; I47.1 Supraventricular tachycardia; C34.90 Malignant neoplasm of unspecified part of unspecified bronchus or lung; I48.0 Paroxysmal atrial fibrillation; I10 Essential (primary) hypertension; E11.9 Type 2 diabetes mellitus without complications; R19.7 Diarrhea, unspecified; E78.5 Hyperlipidemia, unspecified; Z79.01 Long term (current) use of anticoagulants; Z79.899 Other long term (current) drug therapy; Z87.891 Personal history of nicotine dependence; Z79.82 Long term (current) use of aspirin

== ENCOUNTER 2017-11-17 11:28 | Emergency (ER) | payer MEDICARE ==
[2017-11-17] MEDS ORDERED: ISOVUE-370 76% 100ML VIAL (Q9967) As Ordered (13:25)
[2017-11-17] MEDS: METOPROLOL TART 50 MG TAB PO (15:58)
== END 2017-11-17 17:07 | disposition home or self-care (01) ==
LOC: M ED 11:28
DX: J44.9 Chronic obstructive pulmonary disease, unspecified (principal); R09.02 Hypoxemia; C34.32 Malignant neoplasm of lower lobe, left bronchus or lung; C78.7 Secondary malignant neoplasm of liver and intrahepatic bile duct; I10 Essential (primary) hypertension; I48.91 Unspecified atrial fibrillation; E11.9 Type 2 diabetes mellitus without complications; E78.5 Hyperlipidemia, unspecified; F17.200 Nicotine dependence, unspecified, uncomplicated; Z79.899 Other long term (current) drug therapy; Z79.01 Long term (current) use of anticoagulants; Z79.82 Long term (current) use of aspirin; Z79.84 Long term (current) use of oral hypoglycemic drugs
CPT/HCPCS: Q9967

== ENCOUNTER 2017-12-01 10:56 | Inpatient (IN) | payer MEDICARE ==
[2017-12-01] MEDS: DIGOXIN 0.125 MG TAB PO (09:00)
[2017-12-01] MEDS: ASPIRIN 81 MG ENTERIC TAB PO (09:00)
[2017-12-01 11:53] LABS: VENOUS BASE EXCESS 1.5 (-2.0-2.0); VENOUS O2 SATURATION 88.7 % (60.0-80.0); VENOUS PARTIAL PRESSURE CO2 40.8 mmHg (38.0-50.0); VENOUS PARTIAL PRESSURE O2 55.8 mmHg (30.0-50.0); VENOUS PH 7.423 UNITS (7.330-7.430); VENOUS STANDARD HCO3 25.6 MEQ/L; VENOUS TOTAL CO2 27.3 MEQ/L (24.0-28.0)
[2017-12-01 11:58] LABS: BASO % 0.1 % (0.0-1.0); EOS % 0.1 % (0.0-3.0); HEMATOCRIT 44.5 % (42.0-52.0); HEMOGLOBIN 15.5 g/dl (13.5-17.5); IMMATURE GRANULOCYTE % 0.6 % (0-3.0); LYMPH # 1.4 10^3/uL (1.5-4.5); LYMPH % 8.4 % (24.0-44.0); MEAN CORPUSCULAR HEMOGLOBIN 30.9 pg (27.0-33.0); MEAN CORPUSCULAR HGB CONC 34.8 g/dl (32.0-36.5); MEAN CORPUSCULAR VOLUME 88.6 fl (80.0-96.0); MONO # 1.1 10^3/uL (0.0-0.8); MONO % 6.7 % (0.0-5.0); NEUTROPHILS # 13.8 10^3/uL (1.8-7.7); NEUTROPHILS % 84.1 % (36.0-66.0); PLATELET COUNT, AUTOMATED 370 10^3/uL (150-450); RED BLOOD COUNT 5.02 10^6/uL (4.30-6.10); RED CELL DISTRIBUTION WIDTH 14.2 % (11.5-14.5); WHITE BLOOD COUNT 16.4 10^3/uL (4.0-10.0)
[2017-12-01 12:12] LABS: INR 3.66; PROTHROMBIN TIME 37.3 SECONDS (12.1-14.4)
[2017-12-01 12:34] LABS: ALBUMIN 1.8 GM/DL (3.2-5.2); ALBUMIN/GLOBULIN RATIO 0.38 (1.00-1.93); ALKALINE PHOSPHATASE 287 U/L (45-117); ALT/SGPT 33 U/L (12-78); ANION GAP 16 MEQ/L (8-16); AST/SGOT 42 U/L (7-37); BILIRUBIN,DIRECT 0.2 MG/DL (0.0-0.2); BILIRUBIN,TOTAL 0.4 MG/DL (0.2-1.0); BLOOD UREA NITROGEN 25 MG/DL (7-18); CARBON DIOXIDE LEVEL 26 MEQ/L (21-32); CHLORIDE LEVEL 93 MEQ/L (98-107); CK-MB VALUE MASS 4.4 NG/ML (<3.6); CPK CREATINE PHOSPHOKINASE 82 U/L (39-308); CREATININE FOR GFR 1.33 MG/DL (0.70-1.30); GLOMERULAR FILTRATION RATE 56.9 (>49); GLUCOSE, FASTING 123 MG/DL (70-100); MB/CK RELATIVE INDEX 5.36 (< OR =4); NT-PRO BNP 774 PG/ML (<125); SODIUM LEVEL 135 MEQ/L (136-145); TOTAL PROTEIN 6.5 GM/DL (6.4-8.2); TROPONIN I 0.05 NG/ML (< 0.10)
[2017-12-01] MEDS: NS IV (12:45)
[2017-12-01] MEDS: DILUENT IV (12:45)
[2017-12-01] MEDS: METOPROLOL TART 50 MG TAB PO ×2 (14:00→21:34)
[2017-12-01] MEDS: cefTRIAXone SOD 2 GM in D5W MINI-BAG PLUS 50 ML IV (14:09)
[2017-12-01] MEDS: ONDANSETRON 4MG/2ML VIAL (J2405) IV ×2 (15:06→20:38)
[2017-12-01] MEDS: MORPHINE 2 MG/ML 1ML SYRINGE (J2270) IV (15:07)
[2017-12-01] MEDS: NS 1,000 ML IV ×2 (15:45→18:00)
[2017-12-01 16:32] LABS: CPK CREATINE PHOSPHOKINASE 76 U/L (39-308); MB/CK RELATIVE INDEX 5.26 (< OR =4); TROPONIN I 0.05 NG/ML (< 0.10)
[2017-12-01] MEDS: PANTOPRAZOLE 40MG INJ (PROTONIX) (C9113) IV (17:38)
[2017-12-01] MEDS: MEROPENEM INJ 1 GM in APPROPRIATE DILUENT 1 EA IV (17:38)
[2017-12-01] MEDS: methylPREDNISolone INJ 125 MG/2 ML VIAL (J2930) IV (17:38)
[2017-12-01] MEDS: VANCOMYCIN HCL 1,000 MG, VIAL MATE ADAPTER 1 EACH in D5W 250 ML IV ×2 (18:45→20:37)
[2017-12-01] MEDS: IPRATROPIUM 0.5MG/ALBUTEROL 2.5MG INH SOL UD 3ML (DUONEB)(J7620) NEB (19:55)
[2017-12-01] MEDS: SENOKOT S TAB PO (20:15)
[2017-12-01] MEDS: FAMOTIDINE 20 MG TAB PO (20:16)
[2017-12-01] MEDS: APIXABAN 5 MG TAB (ELIQUIS) PO (20:37)
[2017-12-01] MEDS: LISINOPRIL 10 MG TAB PO (20:37)
[2017-12-01] MEDS: ATORVASTATIN 10 MG TAB PO (20:37)
[2017-12-01] MEDS ORDERED: DEXTROSE 50% 50 ML SYRINGE IV (20:45)
[2017-12-01] MEDS ORDERED: GLUCAGON FOR INJ 1 MG VIAL (J1610) SC (20:45)
[2017-12-01] MEDS ORDERED: GLUCOSE 4 GM CHEW TABLET PO (20:45)
[2017-12-01] MEDS: HumaLOG INSULIN (NovoLOG) PER UNIT SC (21:00)
[2017-12-01 21:42] LABS: BEDSIDE GLUCOSE 241 MG/DL (80-115)
[2017-12-01 21:52] LABS: CPK CREATINE PHOSPHOKINASE 85 U/L (39-308); MB/CK RELATIVE INDEX 5.88 (< OR =4); TROPONIN I 0.04 NG/ML (< 0.10)
[2017-12-01 21:52] LABS: LACTIC ACID SEPSIS PROTOCOL 7.4 MMOL/L (0.4-2.0)
[2017-12-01] MEDS: ACETAMINOPHEN TAB 650MG DOSE (2X325MG) PO (23:37)
[2017-12-02] MEDS: MEROPENEM INJ 1 GM in APPROPRIATE DILUENT 1 EA IV ×4 (01:57→16:48)
[2017-12-02] MEDS: IPRATROPIUM 0.5MG/ALBUTEROL 2.5MG INH SOL UD 3ML (DUONEB)(J7620) NEB ×3 (02:00→08:03)
[2017-12-02] MEDS: NS 1,000 ML IV (05:22)
[2017-12-02] MEDS: methylPREDNISolone INJ 125 MG/2 ML VIAL (J2930) IV ×2 (05:23→16:47)
[2017-12-02] MEDS: METOPROLOL TART 50 MG TAB PO ×3 (05:25→20:47)
[2017-12-02 06:04] LABS: HEMATOCRIT 41.4 % (42.0-52.0); MEAN CORPUSCULAR HEMOGLOBIN 31.1 pg (27.0-33.0); MEAN CORPUSCULAR HGB CONC 33.8 g/dl (32.0-36.5); PLATELET COUNT, AUTOMATED 338 10^3/uL (150-450); RED CELL DISTRIBUTION WIDTH 14.5 % (11.5-14.5); WHITE BLOOD COUNT 15.2 10^3/uL (4.0-10.0)
[2017-12-02 06:26] LABS: IONIZED CALCIUM 5.2 MG/DL (4.5-5.3)
[2017-12-02 06:56] LABS: ANION GAP 15 MEQ/L (8-16); BLOOD UREA NITROGEN 25 MG/DL (7-18); CARBON DIOXIDE LEVEL 22 MEQ/L (21-32); CHLORIDE LEVEL 99 MEQ/L (98-107); CREATININE FOR GFR 1.46 MG/DL (0.70-1.30); GLOMERULAR FILTRATION RATE 51.1 (>49); GLUCOSE, FASTING 165 MG/DL (70-100); MAGNESIUM LEVEL 1.6 MG/DL (1.8-2.4); POTASSIUM SERUM 4.8 MEQ/L (3.5-5.1); SODIUM LEVEL 136 MEQ/L (136-145)
[2017-12-02] MEDS: HumaLOG INSULIN (NovoLOG) PER UNIT SC ×4 (07:30→20:51)
[2017-12-02] MEDS: MAG SULF 1GM/100ML (MAG RUN) 1 GM in APPROPRIATE DILUENT 1 EA IV ×2 (08:31→10:19)
[2017-12-02 08:57] LABS: LACTIC ACID SEPSIS PROTOCOL 8.7 MMOL/L (0.4-2.0)
[2017-12-02] MEDS ORDERED: PANTOPRAZOLE 40MG TAB (PROTONIX) PO (09:00)
[2017-12-02] MEDS: SENOKOT S TAB PO ×2 (09:00→20:46)
[2017-12-02] MEDS ORDERED: PILL CRUSHER/CUTTER 1 EACH XX (09:45)
[2017-12-02] MEDS: MORPHINE 4 MG/ML 1ML VIAL/SYRINGE (J2270) IV ×3 (11:17→20:48)
[2017-12-02 11:22] LABS: PTH INTACT < 6.3 PG/ML (18.5-88.0)
[2017-12-02] MEDS: APIXABAN 5 MG TAB (ELIQUIS) PO ×2 (11:58→20:45)
[2017-12-02] MEDS: ASPIRIN 81 MG ENTERIC TAB PO (11:58)
[2017-12-02] MEDS: DIGOXIN 0.125 MG TAB PO (12:19)
[2017-12-02 12:34] LABS: BEDSIDE GLUCOSE 200 MG/DL (80-115)
[2017-12-02] MEDS ORDERED: VARIBAR PUDDING 40% w/v 230ML TUBE As Ordered (12:58)
[2017-12-02] MEDS ORDERED: VARIBAR NECTAR 40% w/v 240ML SUSP BTL As Ordered (12:58)
[2017-12-02] MEDS ORDERED: E-Z-PAQUE 96% w/w SUSP 176GM BTL As Ordered (12:59)
[2017-12-02] MEDS: guaiFENesin 200 MG TAB PO ×3 (12:59→20:49)
[2017-12-02] MEDS: ALBUTEROL 90 MCG/ACT 8GM HFA INHALER INH ×2 (13:11→20:12)
[2017-12-02] MEDS: MEGESTROL SUSP 400 MG/10 ML UDC PO (16:47)
[2017-12-02 17:12] LABS: BEDSIDE GLUCOSE 187 MG/DL (80-115)
[2017-12-02] MEDS: PANTOPRAZOLE 40MG INJ (PROTONIX) (C9113) IV (17:46)
[2017-12-02] MEDS: VANCOMYCIN HCL 1,000 MG, VIAL MATE ADAPTER 1 EACH in D5W 250 ML IV (17:46)
[2017-12-02] MEDS: ATORVASTATIN 10 MG TAB PO (20:45)
[2017-12-02] MEDS: FAMOTIDINE 20 MG TAB PO (20:46)
[2017-12-02] MEDS: LISINOPRIL 10 MG TAB PO (20:46)
[2017-12-02 21:03] LABS: BEDSIDE GLUCOSE 181 MG/DL (80-115)
[2017-12-03] MEDS: MORPHINE 4 MG/ML 1ML VIAL/SYRINGE (J2270) IV ×6 (00:49→21:02)
[2017-12-03] MEDS: ALBUTEROL 90 MCG/ACT 8GM HFA INHALER INH ×3 (02:08→13:23)
[2017-12-03] MEDS: methylPREDNISolone INJ 125 MG/2 ML VIAL (J2930) IV (04:00)
[2017-12-03] MEDS: guaiFENesin 200 MG TAB PO (05:01)
[2017-12-03] MEDS: METOPROLOL TART 50 MG TAB PO (05:04)
[2017-12-03 06:00] LABS: HEMATOCRIT 43.5 % (42.0-52.0); HEMOGLOBIN 14.5 g/dl (13.5-17.5); MEAN CORPUSCULAR HEMOGLOBIN 30.8 pg (27.0-33.0); MEAN CORPUSCULAR HGB CONC 33.3 g/dl (32.0-36.5); MEAN CORPUSCULAR VOLUME 92.4 fl (80.0-96.0); PLATELET COUNT, AUTOMATED 381 10^3/uL (150-450); RED BLOOD COUNT 4.71 10^6/uL (4.30-6.10); RED CELL DISTRIBUTION WIDTH 14.7 % (11.5-14.5)
[2017-12-03 06:18] LABS: ANION GAP 12 MEQ/L (8-16); BLOOD UREA NITROGEN 27 MG/DL (7-18); CALCIUM LEVEL 10.9 MG/DL (8.8-10.2); CARBON DIOXIDE LEVEL 26 MEQ/L (21-32); CHLORIDE LEVEL 97 MEQ/L (98-107); CREATININE FOR GFR 1.37 MG/DL (0.70-1.30); GLUCOSE, FASTING 169 MG/DL (70-100); MAGNESIUM LEVEL 2.4 MG/DL (1.8-2.4); POTASSIUM SERUM 5.1 MEQ/L (3.5-5.1); SODIUM LEVEL 135 MEQ/L (136-145)
[2017-12-03] MEDS: ASPIRIN 81 MG ENTERIC TAB PO (06:41)
[2017-12-03] MEDS: APIXABAN 5 MG TAB (ELIQUIS) PO (06:42)
[2017-12-03] MEDS: HumaLOG INSULIN (NovoLOG) PER UNIT SC ×2 (07:30→11:58)
[2017-12-03 07:49] LABS: INR 2.48; PROTHROMBIN TIME 27.4 SECONDS (12.1-14.4)
[2017-12-03] MEDS: MEROPENEM INJ 1 GM in APPROPRIATE DILUENT 1 EA IV ×2 (09:03)
[2017-12-03] MEDS: DIGOXIN 0.125 MG TAB PO (09:03)
[2017-12-03] MEDS: SENOKOT S TAB PO ×2 (09:03→20:58)
[2017-12-03 11:49] LABS: BEDSIDE GLUCOSE 177 MG/DL (80-115)
[2017-12-03 13:14] LABS: PH BODY FLUID 7.575 UNITS (NOT ESTABLISHED); SOURCE, BODY FLUID pH PLEURAL
[2017-12-03 13:19] LABS: BF MONONUCLEAR CELL % 98.1 % (0-0); BF POLYMORPHONUCLEAR CELL % 1.9 % (0-0); RBC BODY FLUID 4 10^3/uL (<2); WBC BODY FLUID 3069 /uL (0-10)
[2017-12-03 13:22] LABS: APPEARANCE, BODY FLUID HAZY (CLEAR); BF DIFF IF INDICATED? YES (NO); PLEURAL FL COLOR YELLOW (COLORLESS); SOURCE, BODY FLUID PLEURAL
[2017-12-03 13:28] LABS: LDH LACTATE DEHYDROGENASE 1216 U/L (87-241)
[2017-12-03 13:33] LABS: AMYLASE, BODY FLUID 30 U/L (NOT ESTABLISHED); CHOLESTEROL, BODY FLUID < 50 MG/DL (NOT ESTABLISHED); LDH, BODY FLUID 984 U/L (NOT ESTABLISHED); SOURCE, BODY FLUID AMYLASE PLEURAL; SOURCE, BODY FLUID CHOL PLEURAL; SOURCE, BODY FLUID GLUCOSE PLEURAL; SOURCE, BODY FLUID LDH PLEURAL; SOURCE, BODY FLUID TRIG PLEURAL; TRIGLYCERIDE, BODY FLUID 20 MG/DL (NOT ESTABLISHED)
[2017-12-03] MEDS: MEGESTROL SUSP 400 MG/10 ML UDC PO (14:00)
[2017-12-03] MEDS: FAMOTIDINE 20 MG TAB PO (20:58)
[2017-12-04] MEDS: LORazepam 2 MG/ML VIAL (J2060) IV ×3 (01:04→08:17)
[2017-12-04] MEDS: SCOPOLAMINE 1MG TRANSDERMAL PATCH TOP (01:04)
[2017-12-04] MEDS: DIGOXIN 0.125 MG TAB PO (07:35)
[2017-12-04] MEDS: SENOKOT S TAB PO (07:36)
[2017-12-04] MEDS: MORPHINE 4 MG/ML 1ML VIAL/SYRINGE (J2270) IV ×3 (08:47→11:16)
[2017-12-07 08:06] LABS: PTH RELATED PEPTIDE < 2.0 pmol/L (.)
== END 2017-12-04 11:25 | disposition expired | DRG 180 ==
LOC: M MSPAV 12-03 16:39 → M ED 10:56 → M ED INP 15:35 → M PCU 16:42
PROC: 0W9B3ZX Drainage of Left Pleural Cavity, Percutaneous Approach, Diagnostic (ICD-10-PCS; principal; 2017-12-03)
DX: C34.90 Malignant neoplasm of unspecified part of unspecified bronchus or lung (principal); J18.9 Pneumonia, unspecified organism; J96.01 Acute respiratory failure with hypoxia; J91.0 Malignant pleural effusion; C78.7 Secondary malignant neoplasm of liver and intrahepatic bile duct; N17.9 Acute kidney failure, unspecified; E87.2 Acidosis; Z51.5 Encounter for palliative care; E11.9 Type 2 diabetes mellitus without complications; I10 Essential (primary) hypertension; I48.91 Unspecified atrial fibrillation; Z87.891 Personal history of nicotine dependence; Z79.899 Other long term (current) drug therapy; Z79.82 Long term (current) use of aspirin; Z79.01 Long term (current) use of anticoagulants; Z66 Do not resuscitate